=== PATIENT | female | born 1940 | race Caucasian/White ===

== ENCOUNTER 2019-08-21 09:34 | Inpatient (IN) | payer OTHER, MEDICARE ==
--- NOTE | 2019-08-19 13:29 | HP ---
DATE OF ADMISSION: 08/21/2019 DATE OF DICTATION: 08/18/2019 BRIEF HISTORY: This is a 78-year-old female who presents to the office for evaluation of a lump in her mid abdomen. The only surgery she has had was approximately 10 years ago and was a laparoscopic cholecystectomy. She states the lump has gotten significantly larger over the past several years, and now she has discomfort in the area. She has had no bouts of nausea or vomiting. No change in bowel habits. PAST MEDICAL HISTORY: Significant for biliary disease, hypertension, diabetes, bladder cysts, renal cysts, hypothyroidism. PAST SURGICAL HISTORY: She has had bilateral knee replacements. ALLERGIES: None. MEDICATIONS: Metoprolol and Synthroid. SOCIAL HISTORY: Patient is a [employer]. She does not smoke. She drinks socially. PHYSICAL EXAMINATION: Soft, nontender, nondistended. It is obese. Patient lost approximately 40 pounds over the past 4-6 months. She has a large incisional hernia at the level of the umbilicus from her gallbladder extraction site. The skin overlying this is mildly thinned. The other port sites have healed nicely. IMPRESSION AND PLAN: Chronically incarcerated incisional hernia. This is a 78-year-old female who has an incisional hernia at the level of her gallbladder extraction site. At this point, the hernia is rather large and is chronically incarcerated. I think the patient should undergo a repair given its size. I spent a fair amount of time, approximately an hour, with the patient and daughter discussing the various surgical approaches such as laparoscopic, robotic, and open, the various types of hernia repair, retrorectus, intra-abdominal, and fascial onlays. 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 At the end of this long conversation, the patient has elected to proceed with an open wound ventral hernia repair, component separation as needed with mesh. The indications, alternatives, and complications of this procedure have been discussed at length. Questions have been answered. We will plan to obtain written consent the day of surgery. SURESH POLANCO M.D. [id number] cc: Asuncion Gamino MD
[2019-08-20 13:43] VITALS: BMI 32.5
[2019-08-21] MEDS ORDERED: CEFAZOLIN 1 GM/D5W 1 GM/50 ML BAG ONE (10:26)
[2019-08-21] MEDS ORDERED: CLINDAMYCIN PHOSPHATE 600 MG/4 ML VIAL ONE (10:26)
[2019-08-21] MEDS ORDERED: MIDAZOLAM HCL 2 MG/2 ML SINGLE DOSE VIAL ONE ×2 (11:31)
[2019-08-21] MEDS ORDERED: ROCURONIUM BROMIDE 50 MG/5 ML SYRINGE ONE ×2 (11:36→11:44)
[2019-08-21] MEDS ORDERED: ONDANSETRON 4 MG/2 ML VIAL IVPUSH PRN ×2 (12:05→15:55)
[2019-08-21] MEDS ORDERED: LACTATED RINGERS SOLUTION 1,000 ML IV SCH (12:15)
[2019-08-21] MEDS ORDERED: ceFAZolin SODIUM 1 GM VIAL IVPB ONE (12:35)
[2019-08-21] MEDS ORDERED: EPHEDRINE SULFATE/0.9% NACL/PF 50 MG/10 ML SYRINGE NR ONE (12:54)
[2019-08-21] MEDS ORDERED: NEOSTIGMINE METHYLSULFATE 0.5 MG/1 ML - 10 ML MDV ONE (13:23)
[2019-08-21] MEDS ORDERED: GLYCOPYRROLATE 0.2 MG/1 ML VIAL ONE ×2 (13:23→13:29)
[2019-08-21] MEDS ORDERED: KETOROLAC TROMETHAMINE 30 MG/1 ML VIAL ONE (13:24)
--- NOTE | 2019-08-21 15:28 | OP ---
DATE OF OPERATION: 08/21/2019 PREOPERATIVE DIAGNOSIS: Chronically incarcerated, complex ventral hernia. POSTOPERATIVE DIAGNOSIS: Chronically incarcerated, complex ventral hernia. PROCEDURE: Open bilateral component separation, repair of complex, incarcerated ventral hernia with mesh, partial omentectomy. SURGEON: Joce Esposito MD REGIONAL CLINICAL DIRECTOR: Chapincito Walker MD ANESTHESIA: Moreno Ardon MD (general). ESTIMATED BLOOD LOSS: Minimal. SPECIMEN: Portion of omentum. INDICATION FOR PROCEDURE: This is a 78-year-old, female with a long-standing history of having a chronically incarcerated hernia. It has gotten significantly larger and now she has pain and discomfort in the area. She wished to have this repaired. Patient identified and appropriately positioned on the operating room table. After placement of general anesthesia, the abdomen prepped and draped in the usual sterile fashion with ChloraPrep. A midline incision was made and deepened through subcutaneous tissue. The subcutaneous tissue was divided sharply, the hernia identified and free from the subcutaneous tissue down to the level of the fascia. It was circumferentially isolated at the fascia. The hernia sac opened, containing incarcerated omentum. The sac was a slider. Due to this finding, the omentum was serially clamped, divided, and tied with 3-0 Vicryl suture and handed off as specimen along with portion of sac. The posterior rectus sheath on the right side identified, divided sharply, the muscle identified, and using blunt dissection space was subsequently developed out laterally. Laterally, the perforating vessels identified. Just medial to the perforating vessels and fascia, the transversus, rectus, and obliques were then subsequently sharply divided. The myofascial separation ensued, approximately 5 inches above and 5 inches below the actual defect. This allowed placement of a large piece of mesh. A similar approach was used on the contralateral side. On the left side, the posterior rectus space was identified by dividing the fascia of the posterior rectus sheath, the space developed bluntly, out laterally, and just medial to the perforating vessels. The fascia was subsequently divided, allowing the myofascial separation to go again above 5 inches and 5 inches below the actual defect. This allowed placement of the mesh way out lateral. The transversus reapproximated in the midline with a running, locking 3-0 Maxon suture. The defect measured and a large 15 x 15 piece of Versatex, along with a 10 x 6 piece of NICOLE Bio was used for the operative repair. The two pieces of mesh were sewn together in a hybrid fashion. The mesh placed into the retrorectus location with the ProGrip toward the rectus. Next, the mesh was then anchored with interrupted AbsorbaTack anchors. The mesh irrigated. The operative field noted to be hemostatic. The fascia of the anterior sheath reapproximated with a running 0-PDS suture. The subcutaneous space irrigated. Due to the space identified in the subcutaneous tissue, a 10-flat EZEKIEL placed and brought out through a separate stab incision. The skin closed with hammad. At the conclusion of this case, sponge counts were correct. ATTESTATION: Brief OP note handwritten on the preprinted form. [facility] queried, prior to giving narcotics. cc: MD Micky Mcfarlane MD HAR CHI LAU, M.D. [id number]
[2019-08-21] MEDS ORDERED: ACETAMINOPHEN 325 MG TABLET (FP) PO PRN (15:55)
[2019-08-21] MEDS ORDERED: oxyCODONE HCL 5 MG TABLET PO PRN (15:55)
[2019-08-21] MEDS ORDERED: morphine SULFATE 4 MG/ML VIAL IVPB PRN (15:55)
[2019-08-21] MEDS ORDERED: D5-1/2NS+20 MEQ KCL - 20 MEQ/1,000 ML INFUS.BAG IV SCH (16:00)
[2019-08-21] MEDS ORDERED: PT OWN MED DRAWER 7, Y5N ONE (17:55)
[2019-08-21] MEDS: METOPROLOL TARTRATE 50 MG TABLET (FP) PO SCH (21:17)
[2019-08-22] MEDS ORDERED: LEVOTHYROXINE NA 150 MCG TABLET PO SCH (07:00)
--- NOTE | 2019-08-22 09:19 | DS ---
DATE OF ADMISSION: 08/21/2019 DATE OF DISCHARGE: 08/22/2019 ADMITTING DIAGNOSIS: Complex incisional hernia. DISCHARGE DIAGNOSIS: Complex incisional hernia. BRIEF HISTORY: This 78-year-old female presented to [facility] for surgical management of a complex ventral hernia. She underwent repair of that hernia utilizing mesh, component separation and myofascial release, as well as abdominal wall reconstruction. She also had a partial omentectomy. Please reference Dr. Joce Esposito's operative report from August 21. She was admitted to the hospital for postoperative pain and expected ileus. DISPOSITION: She is being discharged home today, August 22. She is ambulating, voiding and tolerating a liquid diet. At the time of her discharge, she has no fever. DISCHARGE INSTRUCTIONS: She will go home with a Tavon-Quispe drain. She will have it removed in approximately 1 week's time, depending on its output. She will sponge bathe. She will not lift more than [address] She is okay to walk and she is okay to climb stairs. DISCHARGE MEDICATIONS: She will resume her usual home medications of Synthroid and metoprolol. She has a prescription for Percocet as well and side effects have been discussed. DO JERMAINE HENRY/[id number]
[2019-08-22 09:32] VITALS: BP 114/84; PULSE 70; TEMP 97.9
[2019-08-22] MEDS: METOPROLOL TARTRATE 50 MG TABLET (FP) PO SCH (09:54)
[2019-08-22] MEDS ORDERED: PANTOPRAZOLE SODIUM 40 MG VIAL IVPUSH SCH (10:00)
[2019-08-22] MEDS ORDERED: ENOXAPARIN NA (PORCINE) 40 MG/0.4 ML DISP.SYRIN SQ SCH (10:00)
--- NOTE | 2019-08-26 16:10 | PATH ---
Surgical Pathology Report Patient Name: REBEKAH WEBER Med. Rec. #: [id number] /Age/Gender: 1940 (Age: 78) / F Account: [id number] Location: [facility] MED/SURG Taken: 08/21/2019 Received: 08/22/2019 Reported: 08/26/2019 Physicians: Joce Esposito Specimen(s) Received HERNIA SAC WITH PORTION OF OMENTUM Clinical History Complex bilateral ventral hernia Final Diagnosis HERNIA SAC WITH PORTION OF OMENTUM, COMPLEX VENTRAL HERNIA REPAIR: HERNIA SAC AND BENIGN OMENTAL ADIPOSE TISSUE. Electronically Signed Annie Sutherland M.D. Gross Description Received in formalin labeled "hernia sac with portion of omentum," is a 7.0 x 4.7 x 4.0 cm romero-reynolds, saccular portion of fibromembranous tissue containing yellow, lobulated adipose tissue, consistent with a hernia sac. No areas of hemorrhage or necrosis are identified. Account Information Clerk sections are submitted in one cassette. /08/23/2019 [facility]08/23/2019
== END 2019-08-22 11:15 | disposition home or self-care (01) | DRG 355 ==
LOC: JASUSAT 09:34 → J8W 16:18 → JASUSAT 16:19 → J8W 16:19
PROVIDERS: ADMIT Surgery; ATTEND Surgery
PROC: 0DBU0ZZ Excision of Omentum, Open Approach (ICD-10-PCS; 2019-08-21)
PROC: 0WUF0JZ Supplement Abdominal Wall with Synthetic Substitute, Open Approach (ICD-10-PCS; principal; 2019-08-21 11:00)
DX: K43.6 Other and unspecified ventral hernia with obstruction, without gangrene (principal); I10 Essential (primary) hypertension; E11.9 Type 2 diabetes mellitus without complications; E03.9 Hypothyroidism, unspecified
CPT/HCPCS: 88302-TC; 94010; 94760